=== PATIENT | male | born 1960 | race Caucasian/White ===

== ENCOUNTER 2016-11-06 18:10 | Observation (INO) | payer OTHER ==
[~2016-11-06] VITALS: Ht 185.4 cm; Wt 112.0 kg
[~2016-11-06 18:10] MED LIST: ASPIR 8181 MG PO; ELAVIL 10 MG TA10 MG PO; FLEXERIL 10 MG10 MG PO; GLUCOPHAGE1000 MG PO; HYDROCHLOROTHIA25 MG PO; IBUPROFEN800 MG PO; KEFLEX500 MG PO; NAPROSYN500 MG PO; NIACIN500 M1 PO; NORCO 7.5-3251 EACH PO; THERAGRAN TAB1 EA PO
[2016-11-06 19:47] LABS: HEMOGLOBIN 16.1 gm/dl (14.0-17.5); RED BLOOD COUNT 5.4 M/UL (4.20-5.50); WHITE BLOOD COUNT 14.5 K/UL (4.5-11.0)
[2016-11-06 20:03] LABS: BUN/CREATININE RATIO 31 (0-10)
[2016-11-07] MEDS ORDERED: FENOFIBRATE160 MG PO (03:09)
[2016-11-07] MEDS ORDERED: TRADJENTA5 MG PO (03:09)
[2016-11-07] MEDS ORDERED: CITALOPRAM HBR40 MG PO (03:09)
[2016-11-07] MEDS ORDERED: METFORMIN HCL1000 M1 PO ×2 (03:10→03:11)
[2016-11-07] MEDS ORDERED: FLEXERIL 10 MG10 MG PO (03:10)
[2016-11-07] MEDS ORDERED: PRILOSEC OTC20 MG PO (03:11)
[2016-11-07] MEDS ORDERED: VISION VITAMIN1 EACH PO (03:12)
[2016-11-07] MEDS ORDERED: LISINOPRIL10 MG PO (03:12)
[2016-11-07] MEDS ORDERED: HYDROCODON-ACE1 EAC4 PO (03:13)
[2016-11-07 07:37] LABS: HEMOGLOBIN 14.2 gm/dl (14.0-17.5); RED BLOOD COUNT 4.86 M/UL (4.20-5.50)
[2016-11-07 07:41] LABS: WHITE BLOOD COUNT 9.6 K/UL (4.5-11.0)
[2016-11-07 07:52] LABS: BUN/CREATININE RATIO 34 (0-10)
[2016-11-07] MEDS ORDERED: VISION SHIELD PO (19:05)
[2016-11-07] MEDS ORDERED: IMDUR ER TAB 3030 MG PO (19:05)
[2016-11-07] MEDS ORDERED: NITROGLYCERIN0.4 MG SL (19:06)
[2016-11-07] MEDS ORDERED: LIPITOR10 MG PO (19:06)
[2017-03-16] MEDS ORDERED: CELEXA20 MG PO (08:17)
[2017-03-16] MEDS ORDERED: ELAVIL 10 MG TA10 MG PO (08:20)
[2017-03-16] MEDS ORDERED: HYDROCHLOROTHIA25 MG PO (08:21)
[2017-03-16] MEDS ORDERED: GLUCOTROL5 MG PO (08:21)
[2017-03-16] MEDS ORDERED: METOPROLOL SUCC25 MG PO (08:22)
[2017-03-16] MEDS ORDERED: JANUVIA100 MG PO (08:22)
== END 2016-11-07 19:50 | disposition home or self-care (01) ==
LOC: ER1 18:10 → MED SURG 4 11-07 00:05 → ZEROF 11-07 00:05 → MED SURG 4 11-07 02:31
PROVIDERS: Family Medicine; ADMIT Internal Medicine
DX: I20.1 Angina pectoris with documented spasm (principal); E11.65 Type 2 diabetes mellitus with hyperglycemia; R11.2 Nausea with vomiting, unspecified; I10 Essential (primary) hypertension; E78.5 Hyperlipidemia, unspecified; E66.9 Obesity, unspecified; K21.9 Gastro-esophageal reflux disease without esophagitis; M54.16 Radiculopathy, lumbar region; K27.9 Peptic ulcer, site unspecified, unspecified as acute or chronic, without hemorrhage or perforation; Z86.59 Personal history of other mental and behavioral disorders; Z79.82 Long term (current) use of aspirin; Z79.891 Long term (current) use of opiate analgesic; Z79.899 Other long term (current) drug therapy; Z88.0 Allergy status to penicillin; Z82.49 Family history of ischemic heart disease and other diseases of the circulatory system
CPT/HCPCS: ECHO; 36415; 71010; 78452; 80048; 80053; 80061; 81001; 82550; 82553; 82962; 83036; 83690; 83735; 83874; 84443; 84484; 85025; 85027; 93005; 93017; 93306; 99284; A9502; G0378; J2785; J7030

== ENCOUNTER → 2016-11-25 | Outpatient (CLI) | payer OTHER ==
[~2016-11-25] MED LIST changes: +CELEXA20 MG PO; +CITALOPRAM HBR40 MG PO; +FENOFIBRATE160 MG PO; +GLUCOTROL5 MG PO; +HYDROCODON-ACE1 EAC4 PO; +IMDUR ER TAB 3030 MG PO; +JANUVIA100 MG PO; +LIPITOR10 MG PO; +LISINOPRIL10 MG PO; +METFORMIN HCL1000 M1 PO; +METOPROLOL SUCC25 MG PO; +NITROGLYCERIN0.4 MG SL; +PRILOSEC OTC20 MG PO; +TRADJENTA5 MG PO; +VISION SHIELD PO; +VISION VITAMIN1 EACH PO
== END ==
LOC: KOH-I 11-20 13:30
DX: R04.2 Hemoptysis (principal)
CPT/HCPCS: 71250

== ENCOUNTER → 2016-12-31 | Outpatient (CLI) | payer OTHER ==
[2016-12-31 14:57] LABS: BUN/CREATININE RATIO 24 (0-10)
== END ==
LOC: LAB 12:50
PROVIDERS: Family Medicine
DX: E11.65 Type 2 diabetes mellitus with hyperglycemia (principal); E78.2 Mixed hyperlipidemia; I10 Essential (primary) hypertension; M62.838 Other muscle spasm
CPT/HCPCS: 36415; 80053; 80061; 83036; 83735

== ENCOUNTER 2017-03-31 02:20 | Emergency (ER) | payer OTHER ==
[2017-03-31 04:04] LABS: HEMOGLOBIN 15.4 gm/dl (14.0-17.5); RED BLOOD COUNT 5.19 M/UL (4.20-5.50); WHITE BLOOD COUNT 13.9 K/UL (4.5-11.0)
[2017-03-31 04:37] LABS: BUN/CREATININE RATIO 38 (0-10)
== END 2017-03-31 08:00 | disposition home or self-care (01) ==
LOC: ER1 02:20
PROVIDERS: Physician Assistant
DX: R10.31 Right lower quadrant pain (principal); R11.2 Nausea with vomiting, unspecified; I11.9 Hypertensive heart disease without heart failure; E11.9 Type 2 diabetes mellitus without complications; Z88.2 Allergy status to sulfonamides; Z79.84 Long term (current) use of oral hypoglycemic drugs
CPT/HCPCS: 36415; 80053; 81001; 82550; 82553; 83605; 83690; 83874; 84484; 85025; 86140; 93005; 96361; 96374; 96375; 99284; J2270; J2405; J7050; Q9962

== ENCOUNTER → 2017-04-02 | Outpatient (CLI) | payer OTHER ==
[2017-04-02 11:41] LABS: BUN/CREATININE RATIO 38 (0-10)
== END ==
LOC: LAB 10:17
PROVIDERS: Family Medicine
DX: E11.65 Type 2 diabetes mellitus with hyperglycemia (principal); I10 Essential (primary) hypertension; E78.2 Mixed hyperlipidemia
CPT/HCPCS: 36415; 80053; 80061; 82043; 82570; 83036; 83735

== ENCOUNTER → 2020-07-16 | Outpatient (CLI) | payer MEDICARE, OTHER ==
[~2020-07-16] MED LIST changes: +CITALOPRAM HBR20 MG PO; +CYCLOBENZAPRINE10 MG PO; +ECOTRIN81 MG PO; +GLIPIZIDE5 MG PO; +IMDUR ER TAB 6060 MG PO; +JARDIANCE10 MG PO; +METFORMIN HCL500 MG PO; +METOPROLOL TART25 MG PO; +NITROSTAT0.4 MG SL; +OMEGA 3 1,0001 EACH PO; +OMEPRAZOLE20 MG PO; +[UNRECOGNIZED DRUG - OTHER] PO
[2020-07-16 13:24] LABS: HEMOGLOBIN 14.8 gm/dl (14.0-17.5); RED BLOOD COUNT 5.99 M/UL (4.20-5.50)
[2020-07-16 13:47] LABS: BUN/CREATININE RATIO 17 (0-10)
== END ==
LOC: LAB 12:38
PROVIDERS: Internal Medicine Interventional Cardiology
DX: R94.39 Abnormal result of other cardiovascular function study (principal); I20.9 Angina pectoris, unspecified; R07.9 Chest pain, unspecified; R79.89 Other specified abnormal findings of blood chemistry; E11.69 Type 2 diabetes mellitus with other specified complication; I10 Essential (primary) hypertension
CPT/HCPCS: 36415; 80048; 85025; 85610; 85730; 93005

== ENCOUNTER → 2020-07-18 | Outpatient (CLI) | payer MEDICARE, OTHER | LOC: CATH 07:08 | DX: I25.118 Atherosclerotic heart disease of native coronary artery with other forms of angina pectoris (principal); I25.84 Coronary atherosclerosis due to calcified coronary lesion; I10 Essential (primary) hypertension; E78.5 Hyperlipidemia, unspecified; E11.9 Type 2 diabetes mellitus without complications; Z82.49 Family history of ischemic heart disease and other diseases of the circulatory system; Z79.82 Long term (current) use of aspirin; Z79.84 Long term (current) use of oral hypoglycemic drugs; Z79.899 Other long term (current) drug therapy | CPT/HCPCS: 82962; 99152; 99153; C1769; C1894; J1644; J2250; J3010; J7030; Q9967 ==

== ENCOUNTER → 2020-08-01 | Outpatient (CLI) | payer MEDICARE, OTHER ==
[2020-08-01 11:53] LABS: HEMOGLOBIN 10.7 gm/dl (14.0-17.5); RED BLOOD COUNT 4.28 M/UL (4.20-5.50); WHITE BLOOD COUNT 13.6 K/UL (4.5-11.0)
[2020-08-01 12:08] LABS: BUN/CREATININE RATIO 13 (0-10)
[2020-08-02 12:13] LABS: CREATININE, URINE 50.4 mg/dL (Not Estab.)
== END ==
LOC: LAB 11:02
PROVIDERS: Family Medicine
DX: D64.9 Anemia, unspecified (principal); E78.2 Mixed hyperlipidemia; E11.65 Type 2 diabetes mellitus with hyperglycemia; Z12.5 Encounter for screening for malignant neoplasm of prostate
CPT/HCPCS: 36415; 80053; 80061; 82043; 82570; 82728; 83036; 83540; 83550; 85027; G0103

== ENCOUNTER → 2020-08-28 | Outpatient (CLI) | payer MEDICARE, OTHER | LOC: LAB 10:34 | DX: R97.20 Elevated prostate specific antigen [PSA] (principal) | CPT/HCPCS: 36415; 84153 ==

== ENCOUNTER → 2020-09-07 | Outpatient (CLI) | payer MEDICARE, OTHER ==
[2020-09-07 11:22] LABS: HEMOGLOBIN 11.4 gm/dl (14.0-17.5); RED BLOOD COUNT 4.8 M/UL (4.20-5.50); WHITE BLOOD COUNT 7.2 K/UL (4.5-11.0)
== END ==
LOC: LAB 10:53
PROVIDERS: Family Medicine
DX: D50.9 Iron deficiency anemia, unspecified (principal)
CPT/HCPCS: 36415; 82728; 83540; 83550; 85025; 85045

== ENCOUNTER → 2020-11-02 | Outpatient (CLI) | payer MEDICARE, OTHER | LOC: RAD 10:46 | DX: Z95.1 Presence of aortocoronary bypass graft (principal) | CPT/HCPCS: 71046 ==

== ENCOUNTER → 2021-02-01 | Outpatient (CLI) | payer MEDICARE ==
[2021-02-01 12:18] LABS: HEMOGLOBIN 11.6 gm/dl (14.0-17.5); RED BLOOD COUNT 5.43 M/UL (4.20-5.50); WHITE BLOOD COUNT 9.2 K/UL (4.5-11.0)
[2021-02-01 13:42] LABS: BUN/CREATININE RATIO 27 (0-10)
== END ==
LOC: LAB 11:19
PROVIDERS: Family Medicine
DX: E11.9 Type 2 diabetes mellitus without complications (principal); E78.2 Mixed hyperlipidemia; I10 Essential (primary) hypertension; D50.9 Iron deficiency anemia, unspecified
CPT/HCPCS: 36415; 80053; 80061; 82728; 83036; 83540; 83550; 83735; 85025; 85045

== ENCOUNTER → 2021-02-18 | Outpatient (CLI) | payer MEDICARE | LOC: LAB 12:29 | DX: R97.20 Elevated prostate specific antigen [PSA] (principal); R79.89 Other specified abnormal findings of blood chemistry | CPT/HCPCS: 36415; 80076; 84153 ==

== ENCOUNTER → 2021-04-08 | Outpatient (CLI) | payer MEDICARE ==
[2021-04-08 13:34] LABS: HEMOGLOBIN 12.8 gm/dl (14.0-17.5); RED BLOOD COUNT 5.88 M/UL (4.20-5.50); WHITE BLOOD COUNT 8.5 K/UL (4.5-11.0)
[2021-04-08 14:00] LABS: BUN/CREATININE RATIO 18 (0-10)
== END ==
LOC: LAB 12:33
PROVIDERS: Family Medicine
DX: K76.0 Fatty (change of) liver, not elsewhere classified (principal); R79.89 Other specified abnormal findings of blood chemistry; D50.9 Iron deficiency anemia, unspecified
CPT/HCPCS: 36415; 80053; 82103; 82728; 83540; 83550; 85025; 85045

== ENCOUNTER → 2021-04-16 | Outpatient (CLI) | payer MEDICARE | LOC: US 08:34 | DX: K76.0 Fatty (change of) liver, not elsewhere classified (principal) | CPT/HCPCS: 76700 ==

== ENCOUNTER → 2021-06-10 | Outpatient (CLI) | payer MEDICARE ==
[2021-06-10 12:08] LABS: HEMOGLOBIN 12.5 gm/dl (14.0-17.5); RED BLOOD COUNT 5.44 M/UL (4.20-5.50)
[2021-06-10 12:39] LABS: BUN/CREATININE RATIO 22 (0-10)
[2021-06-11 09:13] LABS: HBSAG SCREEN Negative (Negative); HEP A AB, IGM Negative (Negative); HEP B CORE AB, IGM Negative (Negative); HEP C VIRUS AB <0.1 (0.0-0.9)
[2021-06-11 11:13] LABS: CREATININE, URINE 50.8 mg/dL (Not Estab.)
== END ==
LOC: LAB 10:48
PROVIDERS: Family Medicine; Internal Medicine Gastroenterology
DX: E11.9 Type 2 diabetes mellitus without complications (principal); E78.2 Mixed hyperlipidemia; I10 Essential (primary) hypertension; D50.9 Iron deficiency anemia, unspecified
CPT/HCPCS: 36415; 80053; 80061; 80074; 82043; 82570; 82728; 83036; 83540; 83550; 83735; 85027; 85045; 86038

== ENCOUNTER 2021-06-25 12:22 | Observation (INO) | payer MEDICARE ==
[~2021-06-25] VITALS: Ht 185.4 cm; Wt 108.9 kg
[~2021-06-25 12:22] MED LIST changes: +CITALOPRAM HBR10 MG PO; -CITALOPRAM HBR20 MG PO; -JARDIANCE10 MG PO; +JARDIANCE25 MG PO; +LOPRESSOR 50 MG50 MG PO; +MEN'S 50 PLUS1 EACH PO; +METFORMIN HCL1000 MG PO; -METOPROLOL TART25 MG PO; -[UNRECOGNIZED DRUG - OTHER] PO
[2021-06-25 13:22] LABS: HEMOGLOBIN 13.7 gm/dl (14.0-17.5); RED BLOOD COUNT 6.02 M/UL (4.20-5.50); WHITE BLOOD COUNT 8.5 K/UL (4.5-11.0)
[2021-06-25 13:50] LABS: BUN/CREATININE RATIO 20 (0-10)
[2021-06-25] MEDS ORDERED: OMEGA-3 ACID ETH1 GM PO (15:48)
[2021-06-25] MEDS ORDERED: FERROUS GLUCON240 MG PO (15:51)
[2021-06-25] MEDS ORDERED: ATORVASTATIN CA20 MG PO (15:53)
[2021-06-25] MEDS ORDERED: DOCUSATE SODIU100 MG PO (17:52)
[2021-06-25] MEDS ORDERED: PRESERVISION A1 EACH PO (17:55)
[2021-06-26 02:16] LABS: WHITE BLOOD COUNT 9.8 K/UL (4.5-11.0)
[2021-06-26 02:19] LABS: HEMOGLOBIN 11.7 gm/dl (14.0-17.5); RED BLOOD COUNT 5.11 M/UL (4.20-5.50)
[2021-06-26 03:52] LABS: BUN/CREATININE RATIO 21 (0-10)
[2021-06-27 04:22] LABS: HEMOGLOBIN 11.4 gm/dl (14.0-17.5); RED BLOOD COUNT 4.92 M/UL (4.20-5.50); WHITE BLOOD COUNT 10.2 K/UL (4.5-11.0)
[2021-06-27 04:55] LABS: BUN/CREATININE RATIO 24 (0-10)
--- NOTE | 2021-06-27 04:57 | NUR ---
AT APPROXIMATELY 0300, PT CALLED OUT TO REPORT THAT HIS RIGHT GROIN FELT STIFF AND THERE WAS A KNOT AT THE SHEATH SITE. PALPATION REVEALED A GOLFBALL SIZED LUMP UNDERNEATH THE SKIN OF THE RIGHT GROIN. NO DISCOLORATION. RIGHT PEDAL PULSE PALPABLE. IMMEDIATELY HELD PRESSURE TO RIGHT GROIN FOR 20 MINUTES, FOLLOWED BY SANDBAG PLACEMENT FOR AN HOUR. PATIENT HAS NOT STOOD UP NOR MOVED AROUND AND IT IS UNCLEAR TO HOW THIS KNOT OCCURRED. SBP REMAINS STABLE, PT HAS NOW AMBULATED IN ROOM, NO SIGNS OF BLEEDING AT THIS TIME.
[2021-06-27] MEDS ORDERED: BRILINTA 90 MG90 MG PO (09:37)
[2021-06-27] MEDS ORDERED: FENOFIBRATE145 MG PO (09:47)
== END 2021-06-27 13:46 | disposition home or self-care (01) ==
LOC: ER1 12:22 → CDU 15:17 → MED SURG 4 18:35 → PROG CARE 06-26 12:13
PROVIDERS: Internal Medicine Cardiovascular Disease; Physician Assistant; Physician Assistant Medical; ADMIT Internal Medicine
PROC: 4A023N7 Measurement of Cardiac Sampling and Pressure, Left Heart, Percutaneous Approach (ICD-10-PCS; principal; 2021-06-26)
PROC: B2111ZZ Fluoroscopy of Multiple Coronary Arteries using Low Osmolar Contrast (ICD-10-PCS; 2021-06-26)
PROC: B2131ZZ Fluoroscopy of Multiple Coronary Artery Bypass Grafts using Low Osmolar Contrast (ICD-10-PCS; 2021-06-26)
PROC: 027034Z Dilation of Coronary Artery, One Artery with Drug-eluting Intraluminal Device, Percutaneous Approach (ICD-10-PCS; 2021-06-26)
DX: I25.110 Atherosclerotic heart disease of native coronary artery with unstable angina pectoris (principal); T82.858A Stenosis of other vascular prosthetic devices, implants and grafts, initial encounter; I10 Essential (primary) hypertension; I45.10 Unspecified right bundle-branch block; E78.5 Hyperlipidemia, unspecified; K21.9 Gastro-esophageal reflux disease without esophagitis; D50.9 Iron deficiency anemia, unspecified; F32.A Depression, unspecified; E11.9 Type 2 diabetes mellitus without complications; G89.29 Other chronic pain; M54.50 Low back pain, unspecified; E66.9 Obesity, unspecified; Z68.31 Body mass index [BMI] 31.0-31.9, adult; Z20.822 Contact with and (suspected) exposure to COVID-19; Z98.890 Other specified postprocedural states; Z95.1 Presence of aortocoronary bypass graft; Z95.5 Presence of coronary angioplasty implant and graft; Z88.2 Allergy status to sulfonamides; Z79.82 Long term (current) use of aspirin; Z79.84 Long term (current) use of oral hypoglycemic drugs; Z79.899 Other long term (current) drug therapy; Y83.2 Surgical operation with anastomosis, bypass or graft as the cause of abnormal reaction of the patient, or of later complication, without mention of misadventure at the time of the procedure
CPT/HCPCS: ECHO; 36415; 71045; 80048; 80053; 80061; 82550; 82553; 82962; 83735; 83874; 84484; 85025; 85027; 85347; 92978; 93005; 93306; 99152; 99153; 99285; C1725; C1753; C1769; C1874; C1887; C1894; C9600; G0378; J1644; J2250; J3010; J3246; Q9967; U0002

== ENCOUNTER 2021-08-27 02:51 | Observation (INO) | payer MEDICARE, OTHER ==
[~2021-08-27] VITALS: Ht 185.4 cm; Wt 107.5 kg
[~2021-08-27 02:51] MED LIST changes: +ATORVASTATIN CA20 MG PO; +BRILINTA 90 MG90 MG PO; -CITALOPRAM HBR10 MG PO; +CITALOPRAM HBR20 MG PO; +DOCUSATE SODIU100 MG PO; +FENOFIBRATE145 MG PO; +FERROUS GLUCON240 MG PO; +OMEGA-3 ACID ETH1 GM PO; +PRESERVISION A1 EACH PO
[2021-08-27 03:57] LABS: HEMOGLOBIN 13.6 gm/dl (14.0-17.5); RED BLOOD COUNT 6.05 M/UL (4.20-5.50); WHITE BLOOD COUNT 10.5 K/UL (4.5-11.0)
[2021-08-27 04:26] LABS: BUN/CREATININE RATIO 22 (0-10)
[2021-08-27] MEDS ORDERED: PROMETHAZINE12.5 M1 PO (14:11)
[2021-08-27] MEDS ORDERED: ATORVASTATIN CA40 MG PO (14:12)
[2021-08-28] MEDS ORDERED: ISOSORBIDE MONO30 MG PO (10:06)
== END 2021-08-28 16:25 | disposition home or self-care (01) ==
LOC: ER1 02:51 → CCU 05:56 → CDU 05:56 → CCU 10:58
PROVIDERS: Physician Assistant; ADMIT Internal Medicine
DX: I25.119 Atherosclerotic heart disease of native coronary artery with unspecified angina pectoris (principal); Z20.822 Contact with and (suspected) exposure to COVID-19; I10 Essential (primary) hypertension; E78.5 Hyperlipidemia, unspecified; E11.9 Type 2 diabetes mellitus without complications; I45.10 Unspecified right bundle-branch block; F32.A Depression, unspecified; D50.9 Iron deficiency anemia, unspecified; K21.9 Gastro-esophageal reflux disease without esophagitis; G89.29 Other chronic pain; M54.50 Low back pain, unspecified; I25.2 Old myocardial infarction; E66.9 Obesity, unspecified; Z68.31 Body mass index [BMI] 31.0-31.9, adult; Z79.82 Long term (current) use of aspirin; Z79.84 Long term (current) use of oral hypoglycemic drugs; Z79.899 Other long term (current) drug therapy; Z88.2 Allergy status to sulfonamides; Z95.1 Presence of aortocoronary bypass graft; Z95.5 Presence of coronary angioplasty implant and graft
CPT/HCPCS: 71045; 71046; 78452; 80053; 82550; 82553; 82962; 83874; 83880; 84484; 85025; 85610; 85730; 93005; 93017; 96372; 99285; A9502; G0378; J1650; J2785; U0002

== ENCOUNTER 2021-09-11 18:18 | Emergency (ER) | payer MEDICARE, OTHER ==
[~2021-09-11 18:18] MED LIST changes: +ATORVASTATIN CA40 MG PO; +ISOSORBIDE MONO30 MG PO; +PROMETHAZINE12.5 M1 PO
[2021-09-11 19:25] LABS: HEMOGLOBIN 13.9 gm/dl (14.0-17.5); RED BLOOD COUNT 5.78 M/UL (4.20-5.50); WHITE BLOOD COUNT 20.8 K/UL (4.5-11.0)
[2021-09-11 20:03] LABS: BUN/CREATININE RATIO 24 (0-10)
[2021-09-11] MEDS ORDERED: OMNICEF 300 MG300 MG PO (21:41)
== END 2021-09-11 22:59 | disposition home or self-care (01) ==
LOC: ER1 18:18
PROVIDERS: Physician Assistant
DX: N39.0 Urinary tract infection, site not specified (principal); K21.9 Gastro-esophageal reflux disease without esophagitis; I10 Essential (primary) hypertension; E11.9 Type 2 diabetes mellitus without complications; Z79.84 Long term (current) use of oral hypoglycemic drugs; Z88.2 Allergy status to sulfonamides
CPT/HCPCS: 80053; 81001; 83690; 85025; 87086; 96374; 99284; J0696; Q9967

== ENCOUNTER → 2022-01-27 | Outpatient (CLI) | payer MEDICARE ==
[~2022-01-27] MED LIST changes: +OMNICEF 300 MG300 MG PO
== END ==
LOC: RAD 12:33
DX: M25.512 Pain in left shoulder (principal); M25.551 Pain in right hip; M25.561 Pain in right knee; M25.562 Pain in left knee; M19.012 Primary osteoarthritis, left shoulder; M17.0 Bilateral primary osteoarthritis of knee; M16.11 Unilateral primary osteoarthritis, right hip
CPT/HCPCS: 73030; 73502; 73564